=== PATIENT | female | born 1945 | race Caucasian/White ===

== ENCOUNTER → 2022-08-31 | Outpatient (CLI) | payer MEDICARE, SELFPAY | END | disposition home or self-care (01) | LOC: LABSPEC 16:19 | PROVIDERS: Visit Provider Physician Assistant | DX: E11.622 Type 2 diabetes mellitus with other skin ulcer (principal); L97.319 Non-pressure chronic ulcer of right ankle with unspecified severity | CPT/HCPCS: 87070; 87077; 87186; 87205 ==

== ENCOUNTER 2022-09-30 09:15 | Outpatient (RCR) | payer MEDICARE, OTHER, SELFPAY ==
[2022-09-16 09:41] VITALS: BP 137/64; PULSE 64; RESP 16; TEMP 35.7; BMI 42.0
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
[2022-09-23 08:57] VITALS: BP 133/53; PULSE 66; RESP 18; TEMP 36; BMI 42.0
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
[2022-09-30 09:21] VITALS: BP 110/57; PULSE 69; TEMP 35.6; BMI 42.0
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
== END 2022-09-30 23:59 | disposition home or self-care (01) ==
LOC: WC 09:15
PROVIDERS: PCP Nurse Practitioner Family; Visit Provider Nurse Practitioner
DX: I83.013 Varicose veins of right lower extremity with ulcer of ankle (principal); E11.622 Type 2 diabetes mellitus with other skin ulcer; L97.312 Non-pressure chronic ulcer of right ankle with fat layer exposed; L97.311 Non-pressure chronic ulcer of right ankle limited to breakdown of skin; Z79.01 Long term (current) use of anticoagulants; Z79.899 Other long term (current) drug therapy; Z79.84 Long term (current) use of oral hypoglycemic drugs; S99.911S Unspecified injury of right ankle, sequela; V18.0XXS Pedal cycle driver injured in noncollision transport accident in nontraffic accident, sequela
CPT/HCPCS: 11042; 99203; G0463

== ENCOUNTER 2022-10-05 09:00 | Outpatient (RCR) | payer MEDICARE, OTHER, SELFPAY ==
--- NOTE | 2022-09-07 10:01 | HP.PTEVAL_ITS ---
Patient's Visit Information EDWIGE STANTON is a 77 year old F referred to Physical Therapy by JEFFREY Guy with a diagnosis of R shoulder pain, R knee pain. Date of Evaluation: 09/07/22 Physical Therapist: Maxim Storm DPT, OCS, CSCS - Visit Plan Frequency: 2-3x /Week Duration: 4-6 Weeks Plan: 2-3x/week for 4 weeks for... 1. TENS and MH and US and STM and stretching to R UT and rhomboid. 2. shoulder and R knee AROM and strength to tolerance. 3. may use TENS on knee if needed. cervical AROM retraction and extension - Subjective had a stroke adn alzheimers. Usually goes to [facility] but cannot this year. R shoulder hurts posteriorly after lifting heavy item. It has hurt in the back of shoulder and down tricep after lifting something heavy about a month ago. Urgent care last week as it got more painful. Husbands stroke was 4 weeks ago. Pain is constant at 8/10. gave muscle relaxers that do not help. No diagnostics. Sleep is interrupted, caring for 24/05 is difficult, cannot sleep in bed. R knee also hurts as she fell missing a step 2 months ago and it is worsening. She has been putting up with it. Has not had time to have it looked at. Hard to write due to arm pain. - Pain R scap Pain Intensity (Out of 10): 8 Pain Intensity Range: 7, 9 R knee Pain Intensity (Out of 10): 4 Pain Intensity Range: 0, 4 Comment: only with WBing. - Objective Posture is forward head and protracted elevated scap. Max frankie to touch in R UT and into rhomboids. Cervical aROM ext 25 and painful, retraction max limits and painful, rotations are 45 without pain. UE AROM elevation is careful in R shoulder and about 110, PROm to 130 B. elbow and wrist are WNL. strength UE 3+ without myotomal problems. reflexes 2/3 bi and tri. Sensation WNL to gross light touch in UE. AROM knees and hips are WFL, tightness obvious in quad and HS. strength LE 3+/5 in B knee ext and 4- in flexion. Ankles are WFL ROM and 4/5 strength, walks somewhat neuropathically and is a borderline diabetic subjectively. tender to touch in knee slightly laterally at patella. No antalgia in I gait today without AD. - Balance/Special Test Scores Quick DASH Score: 61.3625 - Goals Goal 1:: Patient feel shoulder pain is 75% better and 1/10 at worst Goal Time Frame: 4-6 Weeks Goal 2:: Sleep without waking at night Goal Time Frame: 4-6 Weeks Goal 3:: patient able to take care of without problems of shoulder pain increasing. Goal Time Frame: 4-6 Weeks Goal 4:: quaick dash score 15 or better. Goal Time Frame: 4-6 Weeks Goal 5:: I management of knee and shoulder pain Goal Time Frame: 4-6 Weeks - Rehabilitation Potential Physical Therapy Diagnosis: soft tissue pain R shoulder/neck and possible knee contusion. Shoulder pain is holding her back the most and should be intiial focus. Rehabilitation Potential: Fair - Anticipated Interventions Patient/Client Instruction: Educate patient on: Condition, Plan of Care For the Purpose of:: To decrease pain, To decrease swelling/inflammation, To improve muscle performance and motor function, To increase tolerance to activity/condition/position, To improve ability of physical actions for home/community/work/leisure Therapeutic Exercise to Include: Strength training, Postural training, Flexibilty training, Relaxation training, Passive ROM, Active ROM, Scapular Strength/Stabilization For the Purpose of:: To decrease pain, To increase ROM, To improve nutrient delivery to tissue, To improve muscle performance and motor function, To increase tolerance to activity/condition/position, To improve ability of physical actions for home/community/work/leisure Manual Therapy Techniques to Include: Passive ROM, Soft tissue mobilization For the Purpose of:: To decrease pain, To increase ROM TENS: Yes Thermo therapy (hot pack): Yes Ultrasound (thermal/non thermal): Yes - thermal R UT For the Purpose of:: To decrease pain, To increase ROM, To improve nutrient delivery to tissue Thank you for the opportunity to evaluate your patient. For Medicare and Medicare HMO plans, please review the plan of care and approve it. It will need to be FAXED BACK to us at [phone] for Medicare purposes. For Medicare only, by signing this I certify the plan of care. Please let me know if there are questions or concerns regarding this plan of care. Physician Signature: Date:
--- NOTE | 2022-10-05 09:57 | HP.PTREVAL ---
JEFFREY Guy, It has been my pleasure to treat EDWIGE STANTON over the last 8 visits for R shoulder pain, R knee pain. Please see the progress note below for an update on the physical therapy plan of care! Subjective: I am gaining sleeping time in bed. R knee pain is improving and gets up to 5/10 each day. Shoulder is 6/10 but that is better than 9/10 to start. Taking care of is still priority. 505 better a she can handle her home duties but they still hurt. Objective/Function: cervical AROM 40 ext and 45 rotations today, still some pain R UT, scalene area, and tender to touch here as well. FW head posture persists. R knee moving well, just painful. Pt taking care of is a necessity but is hard on her body. appropriate to continue new POC with improvements emphaiizing strenggth but continuing US/STM to neck and progression of stretngth to posture, neck and add knee. Can continue TENs to knee during US also. goals appropriate and fair prognosis Plan Plan: 1x/week for 4 weeks for. continued US to R cervical, tENS to R knee, STM/DTR to R neck and progress home strength of posture/neck and add knee. Balance/Gait/Functional tests - Balance/Special Test Scores Oswestry Neck Score: 24 Quick DASH Score: 61.3625 Goals Goal 1:: Patient feel shoulder pain is 75% better and 1/10 at worst Goal Time Frame: 4-6 Weeks Goal Progress: 50%, approp Goal 2:: Sleep without waking at night Goal Time Frame: 4-6 Weeks Goal Progress: much better Goal 3:: patient able to take care of without problems of shoulder pain increasing. Goal Time Frame: 4-6 Weeks Goal Progress: Progressing, approp Goal 4:: quaick dash score 15 or better. Goal Time Frame: 4-6 Weeks Goal 5:: I management of knee and shoulder pain Goal Time Frame: 4-6 Weeks Goal Progress: Progressing Anticipated Interventions Patient/Client Instruction: Educate patient on: Condition, Plan of Care For the Purpose of:: To decrease pain, To decrease swelling/inflammation, To improve muscle performance and motor function, To increase tolerance to activity/condition/position, To improve ability of physical actions for home/community/work/leisure Therapeutic Exercise to Include: Strength training, Postural training, Flexibilty training, Relaxation training, Passive ROM, Active ROM, Scapular Strength/Stabilization For the Purpose of:: To decrease pain, To increase ROM, To improve nutrient delivery to tissue, To improve muscle performance and motor function, To increase tolerance to activity/condition/position, To improve ability of physical actions for home/community/work/leisure Manual Therapy Techniques to Include: Passive ROM, Soft tissue mobilization For the Purpose of:: To decrease pain, To increase ROM TENS: Yes Thermo therapy (hot pack): Yes Ultrasound (thermal/non thermal): Yes - thermal R UT For the Purpose of:: To decrease pain, To increase ROM, To improve nutrient delivery to tissue Please do not hesitate to contact me at [phone] by phone or if you have questions or concerns regarding this new plan of care! Sincerely, Maxim Storm, DPT, OCS, CSCS
--- NOTE | 2022-10-08 09:42 | HP.PT.NRP ---
EDWIGE STANTON was seen in my office for initial evaluation on 09/07/22. The following Plan of Care was established for this patient: Initial Frequency: 2-3x /Week Initial Duration: 4-6 Weeks Patient/Client Instruction: Educate patient on: Condition, Plan of Care For the Purpose of:: To decrease pain, To decrease swelling/inflammation, To improve muscle performance and motor function, To increase tolerance to activity/condition/position, To improve ability of physical actions for home/community/work/leisure Therapeutic Exercise to Include: Strength training, Postural training, Flexibilty training, Relaxation training, Passive ROM, Active ROM, Scapular Strength/Stabilization For the Purpose of:: To decrease pain, To increase ROM, To improve nutrient delivery to tissue, To improve muscle performance and motor function, To increase tolerance to activity/condition/position, To improve ability of physical actions for home/community/work/leisure Manual Therapy Techniques to Include: Passive ROM, Soft tissue mobilization For the Purpose of:: To decrease pain, To increase ROM TENS: Yes Thermo therapy (hot pack): Yes Ultrasound (thermal/non thermal): Yes - thermal R UT For the Purpose of:: To decrease pain, To increase ROM, To improve nutrient delivery to tissue This patient was last seen in our office 10/05/22. Pertinent comments regarding their Physical therapy will appear below: Pt seen 8 visits and is 50% better. plan was to continue progressing POC but patient has called to cancel all visits due to now being on hospice. Will discontinue her care at her request. At this point I will be discontinuing this patient from physical therapy. I would be happy to see this patient again in the future if found appropriate by the physician. Thank you! Maxim Storm, DPT, OCS, CSCS Balance/Gait/Functional tests - Balance/Special Test Scores Oswestry Neck Score: 24 Quick DASH Score: 61.3625
== END 2022-10-05 19:00 | disposition home or self-care (01) ==
LOC: PT 09:00
PROVIDERS: Referring Provider Physician Assistant; Visit Provider Physician Assistant
DX: S43.401D Unspecified sprain of right shoulder joint, subsequent encounter (principal); S83.91XD Sprain of unspecified site of right knee, subsequent encounter; M19.90 Unspecified osteoarthritis, unspecified site; R53.81 Other malaise
CPT/HCPCS: 97014; 97035; 97110; 97140; 97162; 97530; G0283

== ENCOUNTER 2022-10-21 08:52 | Outpatient (RCR) | payer MEDICARE, OTHER, SELFPAY ==
[2022-10-01 00:39] VITALS: BP 110/57; PULSE 69; RESP 18; TEMP 35.6; BMI 42.0
[2022-10-21 08:58] VITALS: BP 116/57; PULSE 71; RESP 16; TEMP 35.5; BMI 42.0
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
== END 2022-10-21 15:51 | disposition home or self-care (01) ==
LOC: WC 08:52
PROVIDERS: PCP Nurse Practitioner Family; Visit Provider Nurse Practitioner
DX: Z09 Encounter for follow-up examination after completed treatment for conditions other than malignant neoplasm (principal); E11.9 Type 2 diabetes mellitus without complications; I87.2 Venous insufficiency (chronic) (peripheral); Z79.01 Long term (current) use of anticoagulants; Z79.899 Other long term (current) drug therapy
CPT/HCPCS: 99213; G0463